=== PATIENT | female | born 1975 | race Caucasian/White ===

== ENCOUNTER 2024-05-06 20:37 | Inpatient (IN) | payer BC, SELFPAY ==
[2024-05-06 18:18] VITALS: BP 153/93
[2024-05-06 18:45] LABS: Urine Albumin Negative (Neg - Trace); Urine Bilirubin Negative (Negative); Urine Character Clear (Clear); Urine Color Yellow; Urine Glucose Negative (Negative); Urine Ketone Negative (Negative); Urine Leukocyte Negative (Negative); Urine Nitrite Negative (Negative); Urine Occult Blood Negative (Negative); Urine Urobilinogen Negative (Neg - 1+)
[2024-05-06 18:46] LABS: % Basophils 0.4 % (0-2); % Eosinophils 1.7 % (0-6); % Immature Granulocytes 0.3 % (0-0.5); % Lymphocytes 15.9 % (20.5-51.1); % Monocytes 2.3 % (1.7-9.3); % Neutrophils 79.4 % (42.2-75.2); Absolute Basophils 0.1 10^3/uL (0-0.2); Absolute Eosinophils 0.3 10^3/uL (0-0.7); Absolute Lymphocytes 2.4 10^3/uL (1.2-3.4); Absolute Monocytes 0.4 10^3/uL (0.1-0.6); Absolute Neutrophils 12.2 10^3/uL (1.4-6.5); Hematocrit 44.6 % (37.0-47.0); Hemoglobin 14.9 g/dL (12.0-16.0); Mean Corp Hgb Conc. 33.4 g/dL (33.0-37.0); Mean Corpuscular Hgb 28.7 pg (27.0-31.0); Mean Corpuscular Volume 85.8 fL (81.0-99.0); Mean Platelet Volume 9.5 fL (7.4-10.4); Nucleated Red Blood Cells % 0 %; Platelet Count 312 10^3/uL (130-400); Red Cell Dist. Width 12.2 % (11.5-14.5); White Blood Cell Count 15.3 10^3/uL (4.8-10.8)
--- NOTE | 2024-05-06 18:46 | ED.GENMED ---
History of Present Illness
General
Chief Complaint: Abdominal Pain
Source: patient
Exam Limitations: none
Time Seen by Provider: 05/06/24 18:43
Nursing documentation reviewed up to this point in time: agreed with
History of Present Illness
History of Present Illness:
Patient to ED with complaint of severe upper abdominal pain. Symptoms started at around noon today. +nausea, no vomiting, no diarrhea. Brought to ED by spouse for eval. No prior history of same.
Past History
Past History
ED Past Medical History: Hypothyroidism and Other (celiac)
ED Past Surgical History: Gynecological
Social History
Tobacco: Former smoker
Alcohol: Occasional
Drug: None
Personal:
Living: with family
Review of Systems
Review of Systems
Allergies reviewed?: Yes
All Other Systems: ROS reviewed and negative except as documented in HPI and ROS
Constitutional: Reports no symptoms
EENT: Reports no symptoms
Respiratory: Reports no symptoms
Cardiac: Reports no symptoms
ABD/GI: Reports abdominal pain
: Reports no symptoms
Musculoskeletal: Reports no symptoms
Skin: Reports no symptoms
Neurological: Reports no symptoms
Psychiatric: Reports no symptoms
Phy Exam
General Physical Exam
General Presentation: mild distress
General age: appears stated age
General Skin: warm and dry
General Habitus: normal
General Mental: alert
General Hydration: appears well hydrated
Cardiovascular Exam
Cardiovascular Exam: regular rate/rhythm
Gastrointestinal Exam
Gastrointestinal Exam: soft, no organomegaly, no pulsatile mass, non distended and no cva tenderness
Palpation: left upper quadrant: Moderate tenderness, left lower quadrant: No tenderness, right upper quadrant: Moderate tenderness and right lower quadrant: No tenderness
Musculoskeletal Exam
Musculoskeletal Exam: full ROM
Skin Exam
Skin Exam: normal color, warm/dry and no rash
Psychiatric Exam
Psychiatric Exam: normal mood/affect
Course
Orders/Labs/Results
Orders:
Orders
05/06/24 Breakfast
NPO
Allow oral meds: Yes
Allow clear liquids: Sips of Clears
NPO with Ice Chips: Yes
05/06/24 18:26
Electrocardiogram (*1) Urgent
Reason for Study: Abdominal Pain
Test Result ONCE
05/06/24 18:29
US Abdomen Complete/Upper Urgent
Comment:
Reason For Exam: upper abdominal pain
05/06/24 18:38
Complete Blood Count/With Diff Urgent
Comprehensive Metabolic Panel Urgent
HCG, Serum Qualitative Screen Urgent
Lipase Urgent
Urinalysis Reflex To Culture Urgent
Date Specimen was Collected: 05/06/24
Time Specimen was Collected: 18:30
05/06/24 19:27
0.9% Sodium Chloride 1000 ml [Nss] 1,000 ml IV BOLUS
Piperacillin/Tazo 3.375 Gram [Zosyn] 3.375 gram in 50 ml IV NOW
05/06/24 20:11
Admit/Transfer Patient As Directed
Co-Sign Provider:
Level of Care: Inpatient admission
Assign to:: Medical/Surgical
Physician / Group: Mary
Diagnosis: Pancreatitis
Reason for Hospitalization: Pancreatitis
Expected length of stay greater than two midnights?: Yes
ELOS- Estimated Length of Stay in days: 3
I certify the patient meets the requirements for IP care: Yes
05/06/24 20:12
PRN Pain Medication Management As Directed
May give lesser potent ordered pain med per pt: Yes
preference::
Protocol:: Medication orders for pain may be administered in a
manner that supports deferring to patient preference
when the pt is:
- Requesting an ordered lesser potent pain medication.
Least to most potent pain medications are defined
as: acetaminophen < NSAID < tramadol < opioids
(morphine, oxycodone, hydromorphone).
- Requesting a lesser dose of the same medication IF
ORDERED.
- Requesting a less intrusive route of administration
if both routes are prescribed by the provider (PO <
IV).
05/06/24 20:14
Code Status As Directed
Resuscitation Status: Full Code
05/06/24 21:21
Acetaminophen [Tylenol] 650 mg PO Q4HPRN PRN
HYDROmorphone [Dilaudid] 0.25 mg IV Q3HPRN PRN
Ketorolac [Toradol] 15 mg IV Q6HPRN PRN
Lactated Ringers [Lr] 1,000 ml IV 125 mls/hr
Ondansetron Injectable [Zofran] 4 mg IV Q6HPRN PRN
05/06/24 21:21
Activity As Directed
Activity Level: Out of Bed-Early Mobility
With Assistance
Vital Signs As Directed
Frequency: Per unit guidelines
DX Deep Vein Thrombosis Video Routine
05/06/24 22:00
progesterone micronized See Dose Instructions PO HS
05/07/24 06:00
Complete Blood Count/No Diff IN AM
Comprehensive Metabolic Panel IN AM
Magnesium IN AM
TSH Reflex To Free T4 IN AM
Levothyroxine [Synthroid] 75 mcg PO DAILY @ 0600
05/07/24 08:00
Pantoprazole [Protonix IV] 40 mg IV DAILY
05/07/24 18:00
Enoxaparin Sodium [Lovenox] 40 mg SC QPM
05/09/24 08:00
estradiol See Dose Instructions TRANSDERM S[facility]
Abnormal Lab Results
05/06/24
18:38
WBC 15.3 H 10^3/uL
(4.8-10.8)
Absolute Neuts (auto) 12.2 H 10^3/uL
(1.4-6.5)
Neutrophils % 79.4 H %
(42.2-75.2)
Lymphocytes % 15.9 L %
(20.5-51.1)
Glucose 102 H mg/dl
(70-99)
Lipase 3155 H* U/L
(23-300)
05/06/24 18:38
05/06/24 18:38
Vital Signs
Initial and Last Documented VS:
Initial Vital Signs
Temp Pulse Resp BP Pulse Ox
98.2 F 75 18 153/93 98
05/06/24 18:18 05/06/24 18:18 05/06/24 18:18 05/06/24 18:18 05/06/24 18:18
Last Documented Vital Signs
Temp Pulse Resp BP Pulse Ox
98 F 67 18 135/74 98
05/06/24 23:22 05/06/24 23:22 05/06/24 23:22 05/06/24 23:22 05/06/24 23:22
*Critical Care Note
Total Time (30-74mins, 75-104mins- exclusive of procedures): Not Applicable
ED Attending Note
-
Portions of this chart may have been created with voice recognition software.� Occasional wrong word or��sound alike� substitutions may have occurred due to the inherent limitations of voice recognition software.
Discharge Plan
Departure
Patient Disposition: Admit
Date of Disposition: 05/06/24
Time of Disposition: 19:32
Presentation/result/management discussed w/ accepting MD/DO: Hospitalist
Patient with high blood pressure during this ER visit?: Yes
Condition: Fair
Discharge Problem:
Pancreatitis
Interventions
Interventions:
*Risk Screen - Suicide Last Done: 05/06/24 18:23
*General Assessment Last Done: 05/06/24 18:23
*Neglect/Abuse Screening Last Done: 05/06/24 18:23
*ED- Fall Risk Assessment Last Done: 05/06/24 19:50
*ED COVID-19 Vaccine History Last Done: 05/06/24 19:50
*Nursing Disposition Last Done: 05/06/24 20:30
NT-Aicuwp-Wxiuttfrvx Assessment Last Done: 05/06/24 19:55
Discharge Date and Time
Discharge Date/Time: 05/06/24 23:28
[2024-05-06 19:01] LABS: HCG, Serum Qualitative Screen Negative
[2024-05-06 19:04] LABS: ALT (SGPT) 20 U/L (0-35); AST (SGOT) 23 U/L (14-36); Albumin 4.5 g/dl (3.5-5.0); Alkaline Phosphatase 67 U/L (38-126); Blood Urea Nitrogen 14 mg/dl (7-17); Calcium 9.9 mg/dl (8.4-10.2); Carbon Dioxide 27 mmol/L (22-30); Chloride 102 mmol/L (98-107); Glucose 102 mg/dl (70-99); Potassium 4.1 mmol/L (3.5-5.1); Sodium 136 mmol/L (135-145); Total Bilirubin 0.6 mg/dl (0.2-1.3); Total Protein 7.3 g/dl (6.3-8.2); eGFR > 60.00
[2024-05-06 19:18] LABS: Lipase 3155 U/L (23-300)
[2024-05-06] MEDS: ZOSYN 50 IV (19:40)
[2024-05-06] MEDS: NSS 1000 IV (19:45)
[2024-05-06 19:49] VITALS: BMI 29.4
--- NOTE | 2024-05-06 20:21 | HPS.HSE ---
Family Physician
-
Family Physician: Elizabeth Brady
Chief Complaint
-
Abdominal Pain
History of Present Illness
Patient is a 48 y/o female past medical history of celiac disease and hypothyroidism who presents with abdominal pain. Patient describes severe epigastric abdominal pain radiating around the rubs to the back. She reports associated nausea without
vomiting. She denies diarrhea, but has noted her stools seem crown ceramist in color over the past few days. She denies fevers. Work-up in emergency department revealed elevated lipase consistent with pancreatitis. Patient denies any prior history of
pancreatitis. She rarely consumes alcohol and denies any alcohol consumption recently.
Medical History
Past Medical History
Past Medical History: Reports Other
Additional Past Medical History:
Celiac Disease
Hypothyroidism
Multiple Thyroid Nodules
Past Surgical History: Reports Other
Additional Past Surgical History:
LEEP
[place] Teeth
Social History
Tobacco: Non-smoker
Alcohol: Other (Rare)
Family History
Family History: Not pertinent
Allergies / Home Medications
Allergies reflects when Allergies were last updated in [facility].
Home Medications with original date entered in [facility]
Allergy/Medication List:
Allergies
Allergy/AdvReac Type Severity Reaction Status Date / Time
codeine [Codeine] Allergy Intermediate Unknown Verified 11/24/20 20:58
psuedephedrine Allergy Intermediate Unknown Uncoded 11/24/20 20:58
Home Medications
levothyroxine 75 mcg tablet 75 mcg PO DAILY 11/25/20
cholecalciferol (vitamin D3) 50 mcg (2,000 unit) tablet (Vitamin D3) 50 mcg PO NOON 05/06/24
estradiol 0.025 mg/24 hr semiweekly transdermal patch 1 patch transdermal [facility] 05/06/24
progesterone micronized 100 mg capsule 100 mg PO HS 05/06/24
Review of Systems
-
A 12 point ROS was completed and negative except as noted: Yes
Constitutional: Reports Other (Cold sweat when pain was at its most intense); Denies Fever
Respiratory: Denies Cough or Trouble Breathing
Cardiac: Denies Chest Pain or Palpitations
Abdomen/GI: Reports See HPI
Physical Exam
Vital Signs
Vital Signs
Temp Pulse Resp BP Pulse Ox
98.2 F 75 18 153/93 98
05/06/24 18:18 05/06/24 18:18 05/06/24 18:18 05/06/24 18:18 05/06/24 18:18
Physical Exam
General: Comfortable and Conversant
HEENT: Anicteric and Moist mucous membranes
Respiratory: Clear and Non Labored Respirations
Cardiac: S1/S2 and Regular Rhythm
GI: Soft and Tender (Epigastric region without rebound or guarding)
Rectal: Deferred by Provider
Musculoskeletal: No Clubbing, No Cyanosis and No Edema
Skin: Warm and Dry; No Jaundice
Neuro: Awake, Alert, Oriented and Nonfocal/grossly intact
Psych: Calm
Laboratory Results
-
05/06/24 18:38
05/06/24 18:38
Laboratory Results
Total Bilirubin 0.6 mg/dl (0.2-1.3) 05/06/24 18:38
AST 23 U/L (14-36) 05/06/24 18:38
ALT 20 U/L (0-35) 05/06/24 18:38
Alkaline Phosphatase 67 U/L (38-126) 05/06/24 18:38
Lipase 3155 U/L (23-300) H* 05/06/24 18:38
Abdomen Ultrasound:
Small amount of mobile sludge within the gallbladder, with no shadowing gallstones. No evidence for gallbladder wall thickening or pericholecystic edema, with a negative sonographic Fontanez's sign. No evidence for bile duct dilation.
Data Reviewed
-
Ultrasound: Report Reviewed by me
Lab Data: Labs Reviewed by me
Impression/Plan
-
Acute Pancreatitis, unclear etiology
-Consult GI
-Check Triglyceride Level
-Continue NPO/IVFs
-Continue Tylenol for mild pain, Toradol for moderate pain, and Dilaudid for severe pain
-Continue Zofran prn nausea
-Add Protonix IV Daily
-Patient received Zosyn in ED, will hold on further antibiotics
Hypothyroidism
-Continue levothyroxine
Celiac Disease
-Gluten-Free diet when able to tolerate
DVT proph: Lovenox
Code Status: Full Code
--- NOTE | 2024-05-06 20:46 | W.PN.UPDATE ---
Update Note
Progress Note Update
Patient seen and condition with FLORES. I agree with the findings of history and physical. I concur with assessment and plan.
Briefly, this is a 48-year-old female with past medical history of celiac sprue, hypothyroid who presents to the emergency department with acute onset of epigastric abdominal pain that started this afternoon associated with nausea, weakness and
diaphoresis. Pain radiates to bilateral upper quadrants and to the back.
In ED found to have pancreatitis. Denies any ETOH use. Denies h/o pancreatitis. Denies h/o gall stones or family history of gallstones. She denies any fevers or chills. Reports no new medications, OTC or prescribed. Denies any recent travesl.
Denies any rash.
In ED he was afebrile with a temp of 98.2, blood pressure was 150/93 with a pulse of 75 satting 98% on room air. CBC was notable for leukocytosis to 15.3 but otherwise unremarkable. Electrolytes BUN and creatinine were all normal. LFTs were
normal. Lipase was elevated at 3150.
Right upper quadrant abdominal ultrasound shows sludge in the gallbladder but otherwise normal gallbladder. There is no Fontanez sign. No ductal dilatation. Visualized pancreas was without any evidence of necrosis trending or peripancreatic fluid.
Assessment and plan
Patient with acute pancreatitis with markedly elevated lipase level. Currently without any pain nausea or vomiting. Denies the usual causes of pancreatitis including alcohol. No history of gallbladder disease and does not currently have any
gallstones. LFTs are normal and no ductal dilatation suggest no evidence of recent transient choledocholithiasis causing pancreatitis. However cannot rule out this as a possibility. No culprit medication. Ca normal. No diabetes and no history
of triglycerides. Differential still includes gall stone pancreatitis vs autoimmune or viral pancreatitis.
- admit to med/surg
- npo for now
- IV fluids and pain control
- monitor off abx
- check triglycerides
- GI consult, imaging and further serological testing per GI
DVT PPX - lovenox
Code status - Full Code
[2024-05-06 21:27] VITALS: BP 136/78; BMI 28.5
[2024-05-06] MEDS: LR 1000 IV (21:53)
[2024-05-06] MEDS: TYLENOL 650 MG PO (22:11)
[2024-05-06 23:22] VITALS: BP 135/74
[2024-05-07] MEDS: LR 1000 IV ×3 (05:56→23:45)
[2024-05-07] MEDS: SYNTHROID 75 MCG PO (05:57)
[2024-05-07 07:49] VITALS: BP 100/68
[2024-05-07 08:25] LABS: Hematocrit 42.3 % (37.0-47.0); Hemoglobin 14.3 g/dL (12.0-16.0); Mean Corp Hgb Conc. 33.8 g/dL (33.0-37.0); Mean Corpuscular Hgb 29.5 pg (27.0-31.0); Mean Corpuscular Volume 87.2 fL (81.0-99.0); Mean Platelet Volume 9.3 fL (7.4-10.4); Platelet Count 315 10^3/uL (130-400); Red Blood Cell Count 4.85 10^6/uL (4.20-5.40); Red Cell Dist. Width 12.4 % (11.5-14.5); White Blood Cell Count 8.3 10^3/uL (4.8-10.8)
--- NOTE | 2024-05-07 09:14 | CON.GI ---
Addendum entered and electronically signed by Dean Dodson MD 05/07/24 11:34:
Patient seen and examined, agree with resident note. Patient with acute onset of pain consistent with biliary colic, with pancreatitis by symptoms and labs. Of note she had similar symptoms though not as severe 2 weeks ago and light-colored
stools. On exam now she has mild tenderness though is otherwise benign. LFTs are normal, lipase greater than 3000, ultrasound without obvious stones or other anatomical abnormality. Most likely etiology for pancreatitis is passed CBD stone given
her symptoms a couple of weeks ago, and light-colored stools leading up to this admission. Other etiologies including pancreatic divisum, malignancy, pancreatitis etc. seem much less likely. At this point we will continue supportive care, IV
fluids, pain control and start clear liquids. Will await MRI with and without contrast with MRCP and continue to trend labs.
Original Note:
Consultation
-
Date/Time Consultation Requested: 05/06/24
Date/Time Consultation Performed: 05/07/24
Requesting Provider: Sona Azevedo PA-C
Performing Provider: ,
Reason for Consultation: Pancreatitis
Medical History
Chief Complaint / HPI
History of Present Illness:
This is a 48-year-old female patient with past medical history of celiac disease, multiple thyroid nodules and hypothyroidism who presented to the ED with concerns of abdominal pain. Yesterday morning she started to have abdominal pain that was
significant with diaphoresis during the work. She states that her pain was continuous, 8 out of 10 in severity and was radiating to her flanks and back. She admits to nausea but had no vomiting. The pain decreased for a few hours but then
worsened after a few hours at which point she decided to come to the ED. Denies any recent fever or chills. She did notice that her stool started to appear birth attendant in color for the past few days. She also states that 3 weeks ago she had a 'GI
bug' which caused her to have diarrhea and vomiting that lasted for 2-3 days.
She denies any significant use of alcohol, says she rarely drinks (1 glass of wine/month). Denies any abdominal pain after meals or any recent steroid course. She has never had episodes of similar pain previously.
Past Medical History
Past Medical History: Hypothyroidism (Multiple thyroid nodules) and Other (Celiac disease)
Past Surgical History: Gynecological (LEEP) and Other
Social History
Tobacco: Non-Smoker
Alcohol: Occasional (On glass of wine per month)
Employment: Employed
Family History
Family History: Reviewed & Not Pertinent
Allergies / Home Medications
Allergy/AdvReac Type Severity Reaction Status Date / Time
codeine [Codeine] Allergy PALPITATION Verified 05/06/24 21:40
S
pseudoephedrine Allergy PALPITATION Verified 05/06/24 21:40
S
�Medication �Instructions �Recorded
levothyroxine 75 mcg tablet 75 mcg PO DAILY Thyroid 11/25/20
cholecalciferol (vitamin D3) 50 50 mcg PO NOON Supplement 05/06/24
mcg (2,000 unit) tablet (Vitamin
D3)
estradiol 0.025 mg/24 hr 1 patch transdermal [facility] Hormonal 05/06/24
semiweekly transdermal patch Agent
progesterone micronized 100 mg 100 mg PO HS Hormonal Agent 05/06/24
capsule
Review of Systems
-
All other systems: A 12 pt ROS was Negative except as stated above in HPI
Vital Signs
Temp Pulse Resp BP Pulse Ox
98.2 F 68 18 100/68 98
05/07/24 07:49 05/07/24 07:49 05/07/24 07:49 05/07/24 07:49 05/07/24 07:49
Physical Exam
Exam
General: No Apparent Distress
HEENT: Normocephalic
Respiratory: Clear
Cardiac: S1/S2 and Regular Rhythm
GI: Soft, Non Distended, Normal Bowel Sounds and Tender (Generalized tenderness, positive Fontanez sign)
Musculoskeletal: No Edema
Skin: Warm and Dry
Neuro: Awake, Alert and Oriented
Psych: Calm
Results
WBC 8.3 10^3/uL (4.8-10.8) 05/07/24 08:05
Hgb 14.3 g/dL (12.0-16.0) 05/07/24 08:05
Hct 42.3 % (37.0-47.0) 05/07/24 08:05
MCV 87.2 fL (81.0-99.0) 05/07/24 08:05
Plt Count 315 10^3/uL (130-400) 05/07/24 08:05
Absolute Neuts (auto) 12.2 10^3/uL (1.4-6.5) H 05/06/24 18:38
Sodium 136 mmol/L (135-145) 05/06/24 18:38
Potassium 4.1 mmol/L (3.5-5.1) 05/06/24 18:38
Chloride 102 mmol/L (98-107) 05/06/24 18:38
Carbon Dioxide 27 mmol/L (22-30) 05/06/24 18:38
BUN 14 mg/dl (7-17) 05/06/24 18:38
Creatinine 0.8 mg/dL (0.6-1.0) 05/06/24 18:38
Calcium 9.9 mg/dl (8.4-10.2) 05/06/24 18:38
Total Bilirubin 0.6 mg/dl (0.2-1.3) 05/06/24 18:38
AST 23 U/L (14-36) 05/06/24 18:38
ALT 20 U/L (0-35) 05/06/24 18:38
Alkaline Phosphatase 67 U/L (38-126) 05/06/24 18:38
Lipase 3155 U/L (23-300) H* 05/06/24 18:38
Diagnostic Image Results:
US Abd 05/06/24: Small amount of mobile sludge within the gallbladder, with no shadowing gallstones. No evidence for gallbladder wall thickening or pericholecystic edema, with a negative sonographic Fontanez's sign. No evidence for bile duct dilation.
Prior GI Procedures: n/a
EGD: n/a
Colonoscopy: n/a
Assessment / Plan
-
Summary:This is a 48-year-old female patient with past medical history of celiac disease, multiple thyroid nodules and hypothyroidism who presented to the ED with concerns of abdominal pain. Yesterday morning she started to have abdominal pain that
was significant with diaphoresis during the work. She states that her pain was continuous, 8 out of 10 in severity and was radiating to her flanks and back. She admits to nausea but had no vomiting. The pain decreased for a few hours but then
worsened after a few hours at which point she decided to come to the ED. Denies any recent fever or chills. She did notice that her stool started to appear birth attendant in color for the past few days. She also states that 3 weeks ago she had a 'GI
bug' which caused her to have diarrhea and vomiting that lasted for 2-3 days.
She denies any significant use of alcohol, says she rarely drinks (1 glass of wine/month). Denies any abdominal pain after meals. She has never had episodes of similar pain previously.
Assessment/Plan:
#Elevated lipase 3155-likely pancreatitis unknown etiology
- Afebrile
- Triglycerides:103, Lipid WNL, Ca wnl
- US abd shows small biliary sludge but no ductal dilation, no gallstones
- No significant hx of alcohol use
- Continue pain regiment
- Continue IVF
- Advance diet as patient tolerates currently NPO
- Possible causes gallstone (recently passed?) vs anatomical. Less likely for autoimmune as its first episode not chronic
- cmp tomorrow
- will order MRI with [facility]
-
-
Thank you for consultation and allowing me to participate in the patient's care. Please call the [facility] physician during the after hours with any questions or concerns.
[2024-05-07] MEDS: PROTONIX IV 40 MG IV (09:20)
[2024-05-07] MEDS: NSS (PRESERVATIVE FREE) 10 ML IV (09:20)
[2024-05-07 09:23] LABS: ALT (SGPT) 18 U/L (0-35); AST (SGOT) 19 U/L (14-36); Albumin 4.1 g/dl (3.5-5.0); Alkaline Phosphatase 61 U/L (38-126); Blood Urea Nitrogen 12 mg/dl (7-17); Calcium 9.7 mg/dl (8.4-10.2); Carbon Dioxide 26 mmol/L (22-30); Chloride 106 mmol/L (98-107); Estimated Creatinine Clearance 82 ml/min; Glucose 92 mg/dl (70-99); Magnesium 2.2 mg/dl (1.6-2.3); Sodium 140 mmol/L (135-145); Total Bilirubin 0.8 mg/dl (0.2-1.3); Total Protein 6.5 g/dl (6.3-8.2); Triglycerides 103 mg/dl (10-149); eGFR > 60.00
[2024-05-07 10:01] LABS: TSH Reflex To Free T4 1.89 uIU/ml (0.47-4.68)
[2024-05-07 11:23] VITALS: BMI 28.5
--- NOTE | 2024-05-07 12:43 | W.PN.HOSP.TC ---
Today's Communication/Plan
-
* Advance diet as tolerated.
* MRCP.
* IV hydration.
* Analgesics and antiemetics as needed.
Assessment / Plan
Assessment / Plan
Assessment
Key [place], 48-year-old female, had an acute upper abdominal pain episode in the afternoon on 05-06-24 which subsided within 30-45 minutes. A few hours later when she was driving home, she had a similar but worse abdominal pain which persisted.
Came to the emergency and was found to have acute pancreatitis. No previous history of pancreatic or biliary disease. Drinks socially and rarely; last drink 3 weeks ago. No recent change to medications or supplements. Did have an episode of
gastroenteritis a few weeks ago which resolved by itself in a couple of days.
Impression and plan
Acute pancreatitis, unclear etiology
- Differential includes but is not limited to secondary to gallstone, anatomical, autoimmune, genetic and idiopathic.
- Clear liquid trial today.
- IV hydration.
- Analgesics and antiemetics as needed.
- MRCP today.
- Check lipase, CMP and IgG4 tomorrow.
Hypothyroidism
- TSH normal.
- Continue levothyroxine.
Celiac disease
- Has not had an endoscopy but is stable on diet.
Thromboprophylaxis
- Enoxaparin.
Code status
- Full.
Anticipated Discharge: 24 - 48 hours
Subjective/Interval History
-
Date of Service: May 07, 2024
Pain and nausea is better controlled overnight.
Objective Data
-
Labs:
Laboratory Results
05/07/24
08:05
WBC 8.3
Hgb 14.3
Hct 42.3
Plt Count 315
Sodium 140
Potassium 4.0
Chloride 106
Carbon Dioxide 26
BUN 12
Creatinine 0.8
Glucose 92
Calcium 9.7
Total Bilirubin 0.8
AST 19
ALT 18
Alkaline Phosphatase 61
Vital Signs:
Vital Signs
Temp Pulse Resp BP Pulse Ox
98.2 F 68 18 100/68 98
05/07/24 07:49 05/07/24 07:49 05/07/24 07:49 05/07/24 07:49 05/07/24 07:49
I&O
05/06/24 05/07/24 05/08/24
06:59 06:59 06:59
Intake Total 0 / 0
Balance 0 / 0
Review of Systems
-
History Source: Patient and Family
Constitutional: Reports No Symptoms
EENT: Reports No Symptoms Reported
Respiratory: Reports No Symptoms
Cardiac: Reports No Symptoms
Abdomen/GI: Reports Nausea and Pain
Genitourinary: Reports No Symptoms
Musculoskeletal: Reports No Symptoms
Skin: Reports No Symptoms
Neuro: Reports No Symptoms
Endocrine: Reports No Symptoms
Hematologic / Lymphatic: Reports No Symptoms
Allergy / Immunology: Reports No Symptoms
Physical Exam
-
General: No Apparent Distress and Comfortable
HEENT: Normocephalic, Atraumatic, Moist Mucous Membranes, Anicteric and No Ptosis
Respiratory: Clear to Auscultation and Non Labored Respirations
Cardiac: Regular Rhythm and S1/S2
GI: Soft, Nondistended and Tender (mild)
Genito-urinary: No Costovertebral Tender
Musculoskeletal: No Clubbing, No Cyanosis and No Edema
Skin: Warm, Dry and IV Access / Catheter Site
Neuro: Awake, Alert, Oriented, No Motor Deficits and No Sensory Deficits
Hematologic / Lymphatic: No Lymphadenopathy
Psych: Calm and Intact Judgement/Insight
[2024-05-07 16:20] VITALS: BP 120/71
[2024-05-07 23:58] VITALS: BP 107/65
--- NOTE | 2024-05-08 04:31 | DOWNTIME ---
There was a adjust Client Shuttle [employer] Supervisor Downtime on 05/08/2024 from 0100 to 05/09/2023 at 0420 . Downtime documentation of patient's care, including medication administrations, has been reconciled in the electronic record per guidelines. Refer to the
patient's paper chart under the miscellaneous tab to see printed paper medication records and downtime forms.
[2024-05-08] MEDS: SYNTHROID 75 MCG PO (05:49)
--- NOTE | 2024-05-08 06:35 | W.PN.GI.CBS2 ---
Today's Communication / Plan
-
Please see assessment and plan for details.
Assessment / Plan
-
1. Pancreatitis: Acute, interstitial, only episode, likely passed CBD stone given symptoms leading up to admission and quick improvement in symptoms. MRI without other structural abnormality, some possible sludge in the gallbladder though no
obvious stones. Overall she is clinically much improved. Will advance diet and await morning labs, though if tolerating diet and labs still okay then is okay to DC from GI standpoint, follow-up in the office in 2 months.
Subjective
Subjective
Date of Service: May 08, 2024
Patient feeling well overnight, no abdominal pain, nausea vomiting, tolerating clear without difficulty, no fever or chills.
Objective
Data Reviewed
Laboratory Data:
Laboratory Results
Magnesium 2.2 mg/dl (1.6-2.3) 05/07/24 08:05
Total Bilirubin 0.8 mg/dl (0.2-1.3) 05/07/24 08:05
AST 19 U/L (14-36) 05/07/24 08:05
ALT 18 U/L (0-35) 05/07/24 08:05
Alkaline Phosphatase 61 U/L (38-126) 05/07/24 08:05
Lipase 3155 U/L (23-300) H* 05/06/24 18:38
Vital Signs and I&O:
Vital Signs
Temp Pulse Resp BP Pulse Ox
97.7 F 52 17 107/65 97
05/07/24 23:58 05/07/24 23:58 05/07/24 23:58 05/07/24 23:58 05/07/24 23:58
I&O
05/06/24 05/07/24 05/08/24
06:59 06:59 06:59
Intake Total 0 / 0 480 / 480
Balance 0 / 0 480 / 480
Physical Exam
Physical Exam
General: NAD
Abdomen: normal bowel sounds, soft, no tenderness, no masses or bruits, no ascites
[2024-05-08 06:48] LABS: Hematocrit 40.2 % (37.0-47.0); Hemoglobin 13.3 g/dL (12.0-16.0); Mean Corp Hgb Conc. 33.1 g/dL (33.0-37.0); Mean Corpuscular Hgb 28.8 pg (27.0-31.0); Mean Platelet Volume 9.3 fL (7.4-10.4); Platelet Count 274 10^3/uL (130-400); Red Blood Cell Count 4.62 10^6/uL (4.20-5.40); Red Cell Dist. Width 12.2 % (11.5-14.5)
[2024-05-08 07:21] LABS: ALT (SGPT) 17 U/L (0-35); AST (SGOT) 19 U/L (14-36); Albumin 3.4 g/dl (3.5-5.0); Alkaline Phosphatase 55 U/L (38-126); Blood Urea Nitrogen 8 mg/dl (7-17); Calcium 9.3 mg/dl (8.4-10.2); Carbon Dioxide 25 mmol/L (22-30); Chloride 106 mmol/L (98-107); Estimated Creatinine Clearance 94 ml/min; Glucose 87 mg/dl (70-99); Lipase 91 U/L (23-300); Potassium 3.8 mmol/L (3.5-5.1); Sodium 137 mmol/L (135-145); Total Bilirubin 0.6 mg/dl (0.2-1.3); Total Protein 5.8 g/dl (6.3-8.2); eGFR > 60.00
[2024-05-08 07:35] VITALS: BP 115/69
[2024-05-08] MEDS: NSS (PRESERVATIVE FREE) 10 ML IV (08:24)
[2024-05-08] MEDS: PROTONIX IV 40 MG IV (08:24)
--- NOTE | 2024-05-08 10:44 | W.PN.HOSP.TC ---
Today's Communication/Plan
-
* Discharge today.
Assessment / Plan
Assessment / Plan
Assessment
Key Macedo, 48-year-old female, had an acute upper abdominal pain episode in the afternoon on 05-06-24 which subsided within 30-45 minutes. A few hours later when she was driving home, she had a similar but worse abdominal pain which persisted.
Came to the emergency and was found to have acute pancreatitis. No previous history of pancreatic or biliary disease. Drinks socially and rarely; last drink 3 weeks ago. No recent change to medications or supplements. Did have an episode of
gastroenteritis a few weeks ago which resolved by itself in a couple of days.
Impression and plan
Acute pancreatitis, unclear etiology
- Differential includes but is not limited to secondary to gallstone (likely cause), anatomical, autoimmune, genetic and idiopathic.
- Clear liquid trial today.
- IV hydration.
- Analgesics and antiemetics as needed.
- MRCP with no other abnormalities outside pancreatitis consistent with her clinical findings.
- Lipase back to normal; CMP unremarkable.
- IgG4 pending.
Hypothyroidism
- TSH normal.
- Continue levothyroxine.
Celiac disease
- Has not had an endoscopy but is stable on diet.
Thromboprophylaxis
- Enoxaparin.
Code status
- Full.
Anticipated Discharge: Today
Subjective/Interval History
-
Date of Service: May 08, 2024
Pain better controlled.
Objective Data
-
Labs:
Laboratory Results
05/08/24
06:33
WBC 8.0
Hgb 13.3
Hct 40.2
Plt Count 274
Sodium 137
Potassium 3.8
Chloride 106
Carbon Dioxide 25
BUN 8
Creatinine 0.7
Glucose 87
Calcium 9.3
Total Bilirubin 0.6
AST 19
ALT 17
Alkaline Phosphatase 55
Vital Signs:
Vital Signs
Temp Pulse Resp BP Pulse Ox
98.0 F 54 18 115/69 97
05/08/24 07:35 05/08/24 07:35 05/08/24 07:35 05/08/24 07:35 05/08/24 07:35
I&O
05/07/24 05/08/24 05/09/24
06:59 06:59 06:59
Intake Total 0 / 0 480 / 480
Balance 0 / 0 480 / 480
Review of Systems
-
History Source: Patient and Family
Constitutional: Reports No Symptoms
EENT: Reports No Symptoms Reported
Respiratory: Reports No Symptoms
Cardiac: Reports No Symptoms
Abdomen/GI: Reports Nausea and Pain
Genitourinary: Reports No Symptoms
Musculoskeletal: Reports No Symptoms
Skin: Reports No Symptoms
Neuro: Reports No Symptoms
Endocrine: Reports No Symptoms
Hematologic / Lymphatic: Reports No Symptoms
Allergy / Immunology: Reports No Symptoms
Physical Exam
-
General: No Apparent Distress and Comfortable
HEENT: Normocephalic, Atraumatic, Moist Mucous Membranes, Anicteric and No Ptosis
Respiratory: Clear to Auscultation and Non Labored Respirations
Cardiac: Regular Rhythm and S1/S2
GI: Soft, Nondistended and Tender (mild)
Genito-urinary: No Costovertebral Tender
Musculoskeletal: No Clubbing, No Cyanosis and No Edema
Skin: Warm, Dry and IV Access / Catheter Site
Neuro: Awake, Alert, Oriented, No Motor Deficits and No Sensory Deficits
Hematologic / Lymphatic: No Lymphadenopathy
Psych: Calm and Intact Judgement/Insight
[2024-05-08 11:30] VITALS: BP 110/66
--- NOTE | 2024-05-08 13:00 | PTCARENOTE ---
Patient with discharge order. Reviewed discharge instructions with patient. Patient verbalizes understanding of teaching. Denies questions. Patient's IV removed. Patient left ambulatory and denies need for staff escort. Patient independent.
--- NOTE | 2024-05-08 13:22 | CM ---
CM reviewed chart, patient seen bedside, for discharge today. Patient reports she lives with family in a two story home, one step to enter. Patient is independent with ADLs/IADLs, denies use of DME, VN/SNF history. Patient confirms PCP Elizabeth
Jose Antonio, pharmacy used [facility], confirms prescription coverage. Patient denies needs upon discharge, reports she drove self to Hospital. CM will continue to follow for all discharge planning needs.
Plan; home no needs.
--- NOTE | 2024-05-08 14:47 | W.DCSUMMARY ---
Documented by User: Jay Del Valle MD, Resident 05/08/24 14:54
Discharge Summary
Discharge Data
Date of Admission: 05/06/24
Date of Discharge: 05/08/24
-
Pending Results: Yes (autoimmune pancreatitis antibody)
Hospital Course
Primary discharge diagnosis
* Acute pancreatitis, unclear etiology
Secondary discharge diagnoses
- Biliary sludge
- Hypothyroidism
- Celiac disease
Hospital course
Key Macedo, 48-year-old female, was admitted to the hospital on 05-06-24 with acute pancreatitis. She was treated with intravenous hydration, bowel rest and analgesics; she recovered expectedly. Underwent abdominal imaging which did not identify
anatomic or pathologic causes for the episode, but it was likely that she passed a gallstone that caused an acute transient obstruction. Blood work normalized and vitals remained stable throughout the hospital stay. Follow-up with primary in 1 week
and gastroenterology in 2 months.
Discharge Plan
-
Patient Disposition: Home (Routine Discharge)
Discharge Diagnosis/Procedures: Acute pancreatitis, likely secondary to gallstone obstruction
Condition: Good
Diet: Low Cholesterol and Diabetic, Carb Controlled
Activity: No restrictions
Driving Restrictions: As prior to admission
Bathing Restrictions: None
Blood Work: CMP in 1 week
Instructions: Pancreatitis - Discharge instructions
Referrals:
Dean Dodson MD [Active] - 06/12/24 12:30 pm
Elizabeth Brady CRNP [Family Provider] - in less than 1 week
Additional Discharge Medication Instructions: Take acetaminophen 1000 mg three times a day with/without ibuprofen 400 mg three times a day if needed
Prescriptions:
New
ondansetron HCl 4 mg tablet
4 mg PO Q8H PRN (Reason: nausea and vomiting) Qty: 20 1RF
Continued
levothyroxine 75 MCG tablet
75 mcg PO DAILY
progesterone micronized 100 mg Capsule
100 mg PO HS
estradiol 0.025 mg/24 hr Patch Semiweekly
1 patch TRANSDERMAL SUTH
Patient Comments:
05/06/24: Patient has patch on now
cholecalciferol (vitamin D3) [Vitamin D3] 50 mcg (2,000 unit) Tablet
50 mcg PO NOON
Discharge Orders:
Discharge Patient (As Directed); Ordered 05/08/24
Ordered By: Jay Del Valle
Discharge Date and Time
Discharge Date/Time: 05/08/24 14:41
Print Language: MAURITANIAN

Documented by User: Dean Bacon DO 05/09/24 10:39
Discharge Summary
Discharge Data
Date of Admission: 05/06/24
Date of Discharge: 05/09/24
Total time spent discharging patient (in min): 34
Discharge Plan
-
Patient Disposition: Home (Routine Discharge)
Discharge Diagnosis/Procedures: Acute pancreatitis, likely secondary to gallstone obstruction
Condition: Good
Diet: Low Cholesterol and Diabetic, Carb Controlled
Activity: No restrictions
Driving Restrictions: As prior to admission
Bathing Restrictions: None
Blood Work: CMP in 1 week
Instructions: Pancreatitis - Discharge instructions
Referrals:
Dean Dodson MD [Active] - 06/12/24 12:30 pm
Elizabeth Brady CRNP [Family Provider] - in less than 1 week
Additional Discharge Medication Instructions: Take acetaminophen 1000 mg three times a day with/without ibuprofen 400 mg three times a day if needed
Prescriptions:
New
ondansetron HCl 4 mg tablet
4 mg PO Q8H PRN (Reason: nausea and vomiting) Qty: 20 1RF
Continued
levothyroxine 75 MCG tablet
75 mcg PO DAILY
progesterone micronized 100 mg Capsule
100 mg PO HS
estradiol 0.025 mg/24 hr Patch Semiweekly
1 patch TRANSDERMAL SUTH
Patient Comments:
05/06/24: Patient has patch on now
cholecalciferol (vitamin D3) [Vitamin D3] 50 mcg (2,000 unit) Tablet
50 mcg PO NOON
Discharge Orders:
Discharge Patient (As Directed); Ordered 05/08/24
Ordered By: Jay Del Valle
Discharge Date and Time
Discharge Date/Time: 05/08/24 14:41
Print Language: MAURITANIAN
[2024-05-09 22:27] LABS: IgG Subclass 4 58 mg/dL (1-123)
[2024-05-09 23:48] LABS: ANA, IgG Reflex to HEp-2 None Detected (None Detected)
== END 2024-05-08 14:41 | disposition home or self-care (01) | DRG 440 ==
LOC: 4 EAST ACU 20:37
PROVIDERS: Emergency Medicine; Physician Assistant Medical; Student in an Organized Health Care Education/Training Program; ADMITTING PHYSICIAN Internal Medicine; ATTENDING PHYSICIAN Internal Medicine; CONSULT PHYSICIAN Internal Medicine Gastroenterology; EMERGENCY PHYSICIAN Emergency Medicine; FAMILY PHYSICIAN Nurse Practitioner Adult Health
DX: K85.80 Other acute pancreatitis without necrosis or infection (principal); K82.8 Other specified diseases of gallbladder; E03.9 Hypothyroidism, unspecified; K90.0 Celiac disease; E04.2 Nontoxic multinodular goiter; Z87.891 Personal history of nicotine dependence
CPT/HCPCS: 74183; 76700; 80053; 81003; 82787; 83690; 83735; 84443; 84478; 84703; 85025; 85027; 86038; 93005; 96361; 96374; 99285; A9575